=== PATIENT | male | born 1985 | race Caucasian/White ===

== ENCOUNTER 2017-07-02 22:49 | Emergency (ER) | payer SELFPAY ==
[~2017-07-02 22:49] MED LIST: ACET-1966 PO; CYCL10TA29 PO; NO RTN MEDS; PER PO
[2017-07-02 22:50] VITALS: BP 129/95
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
[2017-07-03] MEDS ORDERED: WATER STERILE(*) 10 ML VIAL 10 ML ONE (00:19)
== END 2017-07-03 01:45 | disposition home or self-care (01) ==
LOC: ER 23:22
DX: Z76.89 Persons encountering health services in other specified circumstances (principal)
CPT/HCPCS: 99281